=== PATIENT | female | born 1970 | race Caucasian/White ===

== ENCOUNTER → 2016-08-21 | Outpatient (CLI) | payer BC ==
[~2016-08-21] MED LIST: CYAN10002 IM; Calcium Citrate PO; FEXO1TAB46 PO; PEDICHW53 PO
== END | disposition home or self-care (01) ==
LOC: C.PAPS 15:18
PROVIDERS: ATTEND Obstetrics & Gynecology
DX: Z01.419 Encounter for gynecological examination (general) (routine) without abnormal findings (principal); N95.2 Postmenopausal atrophic vaginitis

== ENCOUNTER → 2016-09-09 | Outpatient (CLI) | payer BC ==
--- NOTE | 2016-09-09 13:19 | MAMMOGRAPHY REPORT ---
BILATERAL DIGITAL DIAGNOSTIC MAMMOGRAM TOMOSYNTHESIS WITH CAD AND TARGETED RIGHT ULTRASOUND: 09/10/19 17 CLINICAL HISTORY: 46-year-old woman presents with pain in the far lateral aspect of the right breast for 1-1/2 to 2 months. It waxes and wanes but is worse with pressure. She also reports the tissue in that area sometimes feel swollen and she may feel an elongated mass. No family history of breas t cancer. No skin erythema or nipple discharge. Annual bilateral exam. TECHNIQUE: Bilateral breast tomosynthesis in addition to standard 2D mammography was performed. [facility] also [facility] given the far lateral location of the area of concern. Curren t study was also evaluated with a Computer Aided Detection (CAD) system. COMPARISON: Comparison is made to exams dated: 07/13/2015 mammogram, 10/20/2012 mammogram - [facility], 06/01/2007, 06/01/2007, and 11/18/2005 mammogram - [facility]. BREAST COMPOSITION: There are scattered areas of fibroglandular density in both breasts. FINDINGS: A square shaped pain marker overlies the far lateral, far posterior right breast, denoting the area of pain pointed out by the patient. There is evidence of prior bilateral reduction mammop lasty. There are scattered stable benign-appearing calcifications bilaterally. An 8 mm mass in the 3:00 to 4:00 right breast has not significantly changed in size or appearance dating back to at [facility] 06/01/2007, therefore likely benign. No new suspicious mass, architectural distortion or cluster of microcalcifications is seen bilaterally. Targeted ultrasound was performed in the area of pain pointed out by the patient, within the far lat eral right 9:00 and 8:00 axes. Normal subcutaneous tissue, fibroglandular tissue and linear scar ti ssue is seen. No suspicious solid or cystic mass is identified. IMPRESSION: ACR BI-RADS CATEGORY 2: BENIGN, TARGETED ULTRASOUND ACR BI-RADS CATEGORY 2: BENIGN Stable bilateral mammograms. There is no mammographic or targeted sonographic evidence of malignanc y. No suspicious mammographic or sonographic abnormality to explain the patient's pain in the far l ateral right 8:009:00 breast. Therefore, clinical follow-up is recommended. A 1 year screening ma mmogram is also recommended. The patient has been verbally notified of the results. Approximately 10% of breast cancers are not detected with mammography. A negative mammographic repor t should not delay biopsy if a clinically suggestive mass is present. Betty Kaye M.D. ay/:09/09/2016 08:47:55 [employer] Helper: Kristan Urias, [facility] letter sent: Normal 1/2 BI-RADS Code: ACR BI-RADS Category 2: Benign Ultrasound BI-RADS: ACR BI-RADS Category 2: Benign
== END | disposition home or self-care (01) ==
LOC: C.MAMM 08:15
PROVIDERS: ATTEND Obstetrics & Gynecology
DX: N64.4 Mastodynia (principal)